=== PATIENT | male | born 1965 | race Caucasian/White ===

== ENCOUNTER 2017-08-12 19:26 | Emergency (ER) | payer SELFPAY ==
[2017-08-12 19:47] VITALS: BP 128/82; PULSE 73; RESP 18; TEMP 98; O2SAT 99
--- NOTE | 2017-08-12 20:17 | ED PDOC ---
Lower Extremity Pain/Injury Time Seen by Provider: 08/12/17 20:04 Chief Complaint (Nursing): Lower Extremity Problem/Injury Chief Complaint (Provider): left leg injury History Per: Patient, Family History/Exam Limitations: no limitations Onset/Duration Of Symptoms: Days (6) Current Symptoms Are (Timing): Still Present Additional Complaint(s): 51 y/o male no past medical history presents with redness/swelling to left lower leg after fall x 6 days. Patient states he fell and cut his left jones area on a piece of wood while doing construction in the house; notes the day after the injury to have swelling and bruising to the left lower extremity, which has improved with ice/hot water. Patient was evaluated at [facility] today and sent to ED for further eval of possible lower leg infection. Denies fever, nausea/vomiting, numbness/weakness left lower extremity, limitation of movement. Tetanus vaccine was administered today Past Medical History Reviewed: Historical Data, Nursing Documentation, Vital Signs Vital Signs: Last Vital Signs Temp 98 F 08/12/17 19:42 Pulse 73 08/12/17 19:42 Resp 18 08/12/17 19:42 BP 128/82 08/12/17 19:42 Pulse Ox 99 08/12/17 19:42 - Medical History PMH: No Chronic Diseases Denies: Chronic Kidney Disease - Surgical History Surgical History: Appendectomy - Family History Family History: States: No Known Family Hx - Living Arrangements Living Arrangements: With Family - Social History Current smoker - smoking cessation education provided: No - Home Medications Home Medications: Ambulatory Orders Medication Instructions Recorded Cephalexin Susp [Keflex] 500 mg PO Q6 #28 ml 01/19/14 Clindamycin [Cleocin] 300 mg PO QID #40 cap 08/12/17 - Allergies Allergies/Adverse Reactions: Allergies Allergy/AdvReac Type Severity Reaction Status Date / Time No Known Allergies Allergy Verified 01/16/14 20:53 Review of Systems ROS Statement: Except As Marked, All Systems Reviewed And Found Negative Musculoskeletal: Positive for: Leg Pain Physical Exam - Reviewed Nursing Documentation Reviewed: Yes Vital Signs Reviewed: Yes - Physical Exam Appears: Positive for: Well, Non-toxic, No Acute Distress Head Exam: Positive for: ATRAUMATIC, NORMAL INSPECTION, NORMOCEPHALIC Skin: Positive for: Normal Color Eye Exam: Positive for: Normal appearance Cardiovascular/Chest: Positive for: Regular Rate, Rhythm Respiratory: Positive for: Normal Breath Sounds Extremity: Positive for: Normal ROM, Swelling (left lower extremity warm to touch, with +erythema, swelling. [id number] scabbed wound anterior jones, with + surrounding erythema, flat/semi fluctuant; no central lesion or active drainage noted. Ecchymosis noted to dorsal aspect digits of left foot, as well as medial /lateral malleoli. Distal NV, motor intact) Neurologic/Psych: Positive for: Alert, Oriented - Laboratory Results Result Diagrams: 08/12/17 20:45 08/12/17 20:45 - ECG O2 Sat by Pulse Oximetry: 99 - Other Rad xray left tib/fib X-Ray: Viewed By Ar X-Ray Interpretation: no acute findings xray left ankle X-Ray: Viewed By Ar X-Ray Interpretation: no acute findings xray left foot X-Ray: Viewed By Ar X-Ray Interpretation: no acute findings - Progress ED Course And Treament: labs, xray, IV toradol, IV clindamycin Patient evaluated by ED attending Dr. Mckay, agrees I&D not indicated at this time. Patient educated on findings, discharged with rx Clindamycin Advised warm compresses. Re-eval in 2 days. Return precautions given Disposition - Clinical Impression Clinical Impression: Cellulitis, Abrasion, leg with infection - Patient ED Disposition Is Patient to be Admitted: No Counseled Patient/Family Regarding: Studies Performed, Diagnosis, Need For Followup, Rx Given - Disposition Referrals: [facility] [Outside] Disposition: Routine/Home Disposition Time: 22:18 Condition: STABLE Prescriptions: Clindamycin [Cleocin] 300 mg PO QID #40 cap Instructions: Cellulitis and Erysipelas (Skin Infections), Skin Abrasions Forms: Tray (Moldovan) Print Language: TURKMEN
[2017-08-12] MEDS ORDERED: Clindamycin 600mg/50ml D5W 600 MG/50 ML VIAL IVPB STA (20:24)
[2017-08-12] MEDS ORDERED: Clindamycin 600mg/50ml NS 600 MG/50 ML BAG IVPB ONE (20:43)
[2017-08-12 21:10] LABS: BASO # 0.1 K/uL (0.0-0.2); EOS # 0.2 K/uL (0.0-0.7); EOS % 2.9 % (0.0-4.0); HEMOGLOBIN 14.4 g/dL (12.0-18.0); LYMPH # 2.7 K/uL (1.0-4.3); LYMPH % 34.3 % (20.0-40.0); MEAN CELL VOLUME 91.3 fl (80.0-94.0); MEAN CORPUSCULAR HEMOGLOBIN 30.4 pg (27.0-31.0); MEAN CORPUSCULAR HGB CONC 33.3 g/dL (33.0-37.0); MEAN PLATELET VOLUME 8.8 fl (7.2-11.7); MONO # 0.8 K/uL (0.0-0.8); MONO % 10.5 % (0.0-10.0); NEUT # 4.1 K/uL (1.8-7.0); NEUT % 51.3 % (50.0-75.0); RBC 4.72 Mil/uL (4.40-5.90); RED CELL DISTRIBUTION WIDTH 13.6 % (11.5-14.5)
[2017-08-12 21:19] LABS: ALB/GLOB RATIO 1.3 (1.0-2.1); ALBUMIN 4.3 g/dL (3.5-5.0); CALCIUM 8.7 mg/dL (8.4-10.2); GFR AFRICAN-AMERICAN > 60; GFR NON-AFRICAN AMERICAN > 60
[2017-08-12 21:22] LABS: AST/SGOT 42 U/L (17-59); BLOOD UREA NITROGEN 20 mg/dl (9-20)
[2017-08-12 22:21] LABS: ALT/SGPT 40 U/L (21-72)
--- NOTE | 2017-08-13 08:47 | RAD ---
PROCEDURE: Left Ankle Radiographs. HISTORY: fall, bruising COMPARISON: None FINDINGS: BONES: No acute fracture. JOINTS: Ankle mortise maintained. Talar dome intact SOFT TISSUES: Normal. OTHER FINDINGS: None. IMPRESSION: No demonstrated fracture or dislocation.
--- NOTE | 2017-08-13 08:48 | RAD ---
PROCEDURE: Radiographs of the left tibia and fibula. HISTORY: fall, redness/swelling COMPARISON: None available. TECHNIQUE: Frontal and lateral views obtained. FINDINGS: BONES: No fracture or destructive lesion. JOINT SPACES: Unremarkable. OTHER FINDINGS: None. IMPRESSION: Unremarkable radiographs of the left tibia and fibula.
--- NOTE | 2017-08-13 08:48 | RAD ---
PROCEDURE: Left Foot Radiographs. HISTORY: injury, bruising COMPARISON: Feet radiographs dated 05/24/2016. FINDINGS: BONES: No acute fracture. JOINTS: Unremarkable. SOFT TISSUES: Normal. OTHER FINDINGS: None. IMPRESSION: No demonstrated fracture or dislocation.
== END 2017-08-12 23:33 | disposition home or self-care (01) ==
LOC: H.ER 19:26
DX: S80.812A Abrasion, left lower leg, initial encounter (principal); L03.116 Cellulitis of left lower limb; W18.30XA Fall on same level, unspecified, initial encounter
CPT/HCPCS: 73590; 73610; 73630; 80053; 83605; 85025; 96365; 99283; J1885